=== PATIENT | female | born 1990 | race Two or more races ===

== ENCOUNTER 2020-05-19 07:12 | Observation (INO) | payer MEDICAID, OTHER ==
[~2020-05-19] VITALS: Ht 162.6 cm; Wt 57.6 kg
[2020-05-19] MEDS ORDERED: LACTATED RINGER'S 1,000 ML IV ONE (08:00)
[2020-05-19] MEDS ORDERED: LACTATED RINGER'S 1,000 ML IV SCH (08:00)
[2020-05-19] MEDS ORDERED: MEPERIDINE HCL (50 MG/ML) 1 ML VIAL IM ONE (09:15)
[2020-05-19 09:40] LABS: Amphetamine Screen, Urine NEGATIVE (NEGATIVE); Barbiturate Scree,Urine NEGATIVE (NEGATIVE); Benzodiazephine Screen, Urine NEGATIVE (NEGATIVE); Cannabinoid Screen, Urine NEGATIVE (NEGATIVE); Cocaine Screen, Urine NEGATIVE (NEGATIVE); Opiate Scree,Urine NEGATIVE (NEGATIVE); Phencyclidine Screen, Urine NEGATIVE (NEGATIVE)
[2020-05-19 09:47] LABS: Urine Bacteria FEW /hpf (None Seen); Urine Blood Negative /uL (Negative); Urine Specific Gravity 1.012 (1.001-1.035); Urine WBC 5 /hpf (0 - 5)
[2020-05-19] MEDS ORDERED: CEFTRIAXONE SODIUM 2 GM in D5W 5% 50 ML IV ONE (12:30)
[2020-05-19] MEDS: MEPERIDINE HCL (50 MG/ML) 1 ML VIAL IM PRN ×2 (14:27→20:43)
[2020-05-20] MEDS: MEPERIDINE HCL (50 MG/ML) 1 ML VIAL IM PRN (04:17)
== END 2020-05-20 06:15 | disposition home or self-care (01) ==
LOC: LDRP 07:12
PROVIDERS: ADMIT Specialist; ATTEND Specialist
DX: O99.612 Diseases of the digestive system complicating pregnancy, second trimester (principal); Z20.828 Contact with and (suspected) exposure to other viral communicable diseases; O26.892 Other specified pregnancy related conditions, second trimester; N21.0 Calculus in bladder; Z3A.27 27 weeks gestation of pregnancy; Z79.899 Other long term (current) drug therapy
CPT/HCPCS: 36415; 59025; 76700; 80307; 81001; 81002; 87426; 96372; G0378; J0696; J2175; J7030; J7060; U0003; 96360; 96361; 96366

== ENCOUNTER 2023-03-02 05:32 | Emergency (ER) | payer MEDICAID ==
[2023-03-02 06:26] LABS: Basophils # (auto) 0 10 ^3/uL (0-0.2); Basophils % (auto) 0.3 % (0.0-2.0); Eosinophils # (auto) 0.1 10 ^3/uL (0-0.8); Eosinophils % (auto) 1.1 % (0.0-7.0); Hematocrit 37.6 % (36.0-46.0); Lymphocytes # (auto) 2.9 10 ^3/uL (0.4-5.4); Lymphocytes % (auto) 40.8 % (10.0-50.0); Mean Corpuscular Hemoglobin 28.2 pg (28.0-32.0); Mean Corpuscular Hgb Conc. 34.7 g/dL (32.0-36.0); Mean Corpuscular Volume 81.3 fL (80.0-100.0); Monocytes # (auto) 0.3 10 ^3/uL (0-1.3); Monocytes % (auto) 4.6 % (0.0-12.0); Neutrophils # (auto) 3.8 10 ^3/uL (1.6-8.6); Neutrophils % (auto) 53.2 % (37.0-80.0); Nucleated Red Blood Cells % 0.1 %; Red Blood Cells 4.62 10^6/uL (4.0-5.20); Red Cell Distribution Width 14.2 % (11.8-14.3); White Blood Cell 7.2 10^3/uL (4.4-10.8)
[2023-03-02 06:52] VITALS: BP 106/62; TEMP 97.9
[2023-03-02 06:53] VITALS: PULSE 100; RESP 18; O2SAT 98
[2023-03-02 07:09] LABS: Urine Bacteria MANY /hpf (None Seen); Urine Blood Negative /uL (Negative); Urine Clarity Clear (Clear); Urine Color Colorless (Yellow); Urine Hyaline Cast FEW /lpf (0 - 2); Urine Protein, UAD Negative (Negative); Urine Specific Gravity 1.009 (1.001-1.035); Urine Urobilinogen Normal (Negative); Urine WBC 2 /hpf (0 - 5); Urine pH 6.5 (5.0-8.0)
[2023-03-02 07:40] LABS: Alanine Aminotransferase 19 U/L (7-40); Albumin 4.2 g/dL (3.2-4.8); Alkaline Phosphatase 37 U/L (46-116); Anion Gap 7 (5-15); Aspartate Aminotransferase 14 U/L (13-40); Bilirubin, Total 0.3 mg/dL (0.2-1.0); Calcium 9.2 mg/dL (8.7-10.4); Carbon Dioxide 21 mmol/L (20-30); Chloride 108 mmol/L (98-107); Glucose 128 mg/dL (74-106); Lipase 37 U/L (12-53); Potassium 3.9 mmol/L (3.5-5.1); Sodium 136 mmol/L (136-145); Total Protein 6.9 g/dL (5.7-8.2)
[2023-03-02 07:42] LABS: BUN/Creatinine Ratio 8.8 (10.0-20.0); Blood Urea Nitrogen < 5 mg/dL (9-23)
== END 2023-03-02 09:31 | disposition home or self-care (01) ==
LOC: ER 05:32
DX: O26.891 Other specified pregnancy related conditions, first trimester (principal); R10.2 Pelvic and perineal pain; R10.33 Periumbilical pain; R11.0 Nausea; Z3A.12 12 weeks gestation of pregnancy; Z98.890 Other specified postprocedural states
CPT/HCPCS: 36415; 76705; 76801; 80053; 81001; 83690; 84702; 85025

== ENCOUNTER 2023-03-20 07:32 | Emergency (ER) | payer MEDICAID ==
[~2023-03-20] VITALS: Ht 162.6 cm; Wt 100.4 kg
[2023-03-20 08:10] LABS: Basophils # (auto) 0.1 10 ^3/uL (0-0.2); Basophils % (auto) 0.6 % (0.0-2.0); Eosinophils # (auto) 0.1 10 ^3/uL (0-0.8); Eosinophils % (auto) 0.9 % (0.0-7.0); Hematocrit 36.9 % (36.0-46.0); Hemoglobin 12.5 g/dL (12.2-16.2); Lymphocytes # (auto) 1.9 10 ^3/uL (0.4-5.4); Lymphocytes % (auto) 21.4 % (10.0-50.0); Mean Corpuscular Hemoglobin 27.6 pg (28.0-32.0); Mean Corpuscular Hgb Conc. 33.8 g/dL (32.0-36.0); Mean Corpuscular Volume 81.7 fL (80.0-100.0); Monocytes # (auto) 0.4 10 ^3/uL (0-1.3); Monocytes % (auto) 4.4 % (0.0-12.0); Neutrophils # (auto) 6.5 10 ^3/uL (1.6-8.6); Neutrophils % (auto) 72.7 % (37.0-80.0); Red Blood Cells 4.52 10^6/uL (4.0-5.20); Red Cell Distribution Width 14.2 % (11.8-14.3)
[2023-03-20 08:27] LABS: Urine Bacteria FEW /hpf (None Seen); Urine Blood 3+ /uL (Negative); Urine Clarity CLOUDY (Clear); Urine Protein, UAD 2+ (Negative); Urine Specific Gravity 1.026 (1.001-1.035); Urine Urobilinogen Normal (Negative); Urine WBC 2859 /hpf (0 - 5); Urine WBC Clumps PRESENT /hpf (None Seen)
[2023-03-20 08:28] LABS: Urine Color Amber (Yellow)
[2023-03-20 08:35] LABS: Alanine Aminotransferase 14 U/L (7-40); Alkaline Phosphatase 33 U/L (46-116); Anion Gap 10 (5-15); Aspartate Aminotransferase 9 U/L (13-40); BUN/Creatinine Ratio 8.8 (10.0-20.0); Blood Urea Nitrogen 5 mg/dL (9-23); Carbon Dioxide 20 mmol/L (20-30); Chloride 108 mmol/L (98-107); Glucose 126 mg/dL (74-106); Potassium 3.6 mmol/L (3.5-5.1); Sodium 138 mmol/L (136-145)
[2023-03-20 08:36] LABS: Bilirubin, Total 0.4 mg/dL (0.2-1.0); Total Protein 6.7 g/dL (5.7-8.2)
[2023-03-20 08:41] LABS: INR 0.98 (0.9-1.15); Partial Thromboplastin Time 26.9 SEC (24.5-34.5); Prothrombin Time 10.3 sec (9.3-11.8)
[2023-03-20] MEDS ORDERED: CEPH250C PO (08:59)
[2023-03-20] MEDS ORDERED: cefTRIAXone SOD 1,000 MG VL IM ONE (09:00)
[2023-03-20 09:31] VITALS: BP 110/49; PULSE 93; RESP 18; TEMP 97.1; O2SAT 96
== END 2023-03-20 09:35 | disposition home or self-care (01) ==
LOC: ER 07:32
DX: O23.42 Unspecified infection of urinary tract in pregnancy, second trimester (principal); R10.2 Pelvic and perineal pain; Z3A.15 15 weeks gestation of pregnancy; Z98.890 Other specified postprocedural states; Z79.899 Other long term (current) drug therapy
CPT/HCPCS: 36415; 76805; 80053; 81001; 84702; 85025; 85610; 85730; 96372; 99285; J0696

== ENCOUNTER 2023-08-13 02:17 | Observation (INO) | payer MEDICAID ==
[~2023-08-13] VITALS: Ht 162.6 cm; Wt 112.0 kg
[~2023-08-13 02:17] MED LIST: CEPH250C PO
[2023-08-13] MEDS: TERBUTALINE SULFATE 1 MG/ML 1ML VIAL SC ONE (02:41)
[2023-08-13] MEDS: TERBUTALINE SULFATE 1 MG/ML 1ML VIAL SC SCH (03:43)
[2023-08-13] MEDS: LACTATED RINGER'S 1,000 ML IV ONE (03:44)
[2023-08-13] MEDS: LACTATED RINGER'S 1,000 ML IV SCH (03:45)
[2023-08-13] MEDS: NIFEdipine 10 MG CAP ONE (03:54)
[2023-08-13] MEDS ORDERED: PREN-96 OR (04:18)
[2023-08-13] MEDS ORDERED: FERR325T24 PO (04:18)
[2023-08-13] MEDS ORDERED: ASPI-543 PO (04:18)
[2023-08-13] MEDS ORDERED: LEVO50TA7 PO (04:18)
[2023-08-13] MEDS: NIFEdipine 10 MG CAP PO ONE (05:52)
== END 2023-08-13 04:56 | disposition home or self-care (01) ==
LOC: LDRP 02:17
PROVIDERS: ADMIT Obstetrics & Gynecology; ATTEND Obstetrics & Gynecology
DX: O62.9 Abnormality of forces of labor, unspecified (principal); O24.414 Gestational diabetes mellitus in pregnancy, insulin controlled; O99.283 Endocrine, nutritional and metabolic diseases complicating pregnancy, third trimester; O26.893 Other specified pregnancy related conditions, third trimester; R10.30 Lower abdominal pain, unspecified; E03.9 Hypothyroidism, unspecified; Z79.4 Long term (current) use of insulin; Z3A.37 37 weeks gestation of pregnancy
CPT/HCPCS: 59025; 76805; 76818; 81002; 82962; 94760; 96360; 96372; G0378; J3105